=== PATIENT | female | born 1990 | race Caucasian/White ===

== ENCOUNTER 2017-10-20 04:38 | Emergency (ER) | payer BC ==
[~2017-10-20] VITALS: Ht 167.6 cm; Wt 80.2 kg
[2017-10-20 04:40] VITALS: BP 138/79; PULSE 83; RESP 16; TEMP 97.7; O2SAT 100
[2017-10-20] MEDS ORDERED: AMOXICILLIN/CLAVULANATE K 875 MG TAB PO ONE (05:00)
[2017-10-20] MEDS ORDERED: CHLO.12%30 SWISH-SPIT (05:09)
[2017-10-20] MEDS ORDERED: AUGM875T3 PO (05:09)
[2017-10-20] MEDS ORDERED: IBUP1TAB7 PO (05:09)
--- NOTE | 2017-10-20 05:10 | PD ---
HPI Chief Complaint: Skin Problem Time Seen by Provider: 04:52 Travel History International Travel<30 days: No Contact w/Intl Traveler<30days: No Traveled to known affect area: No History of Present Illness HPI Patient is a 27-year-old female presenting to the emergency department for evaluation of left upper lip swelling. Patient states it started last night, when she woke up this morning and gotten worse. Patient has a piercing in her left upper lip since she was 14, she has never removed the piercing. She is unable to get the piercing out at this time. She denies any fever, chills, nausea, vomiting, headache. She reports her pain is a 3 out of 10 and states it sore. Symptom onset was gradual, symptoms are moderate in severity. PFSH Past Medical History Medical History: Denies Significant Hx Diminished Hearing: No ?: Not : 1 Para: 1 Past Surgical History Surgical History: No Previous Surgery Social History Alcohol Use: No Tobacco Use: No Substance Use: No Allergies-Medications (Allergen,Severity, Reaction): Coded Allergies: No Known Allergies (Unverified , 10/20/17) Reported Meds & Prescriptions Reported Meds & Active Scripts Active Chlorhexidine Gluconate (Mouth) Liq (Chlorhexidine Gluconate) 0.12% Soln 15 Ml SWISH-SPIT BID 10 Days Ibuprofen 800 Mg Tab 800 Mg PO Q6HR PRN Augmentin (Amoxicillin-Clavulanate) 875-125 Mg Tab 1 Tab PO BID Review of Systems Except as stated in HPI: all other systems reviewed are Neg Musculoskeletal: Positive: Edema Physical Exam Narrative GENERAL: Well-developed, well-nourished, alert female. Presenting in no acute distress. SKIN: Warm and dry. Left upper lip from the midline to the left lateral aspect is edematous, no erythema noted. Piercing in place. Edema is limited to the left upper lip HEAD: Normocephalic. EYES: No scleral icterus. No injection or drainage. NECK: Supple, trachea midline. No JVD or lymphadenopathy. CARDIOVASCULAR: Regular rate and rhythm without murmurs, gallops, or rubs. RESPIRATORY: Breath sounds equal bilaterally. No accessory muscle use. GASTROINTESTINAL: Abdomen soft, non-tender, nondistended. MUSCULOSKELETAL: No cyanosis, or edema. BACK: Nontender without obvious deformity. No CVA tenderness. Data Data Last Documented VS Vital Signs Date Time Temp Pulse Resp B/P (MAP) Pulse Ox O2 Delivery O2 Flow Rate FiO2 10/20/17 04:40 97.7 83 16 138/79 (98) 100 Orders Orders Amoxicil-Clavulanate (Augmentin) (10/20/17 05:00) Ed Discharge Order (10/20/17 04:52) MDM Medical Decision Making Medical Screen Exam Complete: Yes Emergency Medical Condition: Yes Interpretation(s) Vital Signs Date Time Temp Pulse Resp B/P (MAP) Pulse Ox O2 Delivery O2 Flow Rate FiO2 10/20/17 04:40 97.7 83 16 138/79 (98) 100 Differential Diagnosis Cellulitis versus abscess versus retained foreign body versus other Narrative Course Patient is a 27-year-old female that presented to emergency room for evaluation of edema to her left upper lip. Area appears edematous however there is no erythema. Patient's vital signs are stable. Piercing was removed. Patient was given a dose of Augmentin in the emergency department. She is encouraged to complete full course of antibiotics, use chlorhexidine mouthwash twice daily. She is encouraged to return to emergency department immediately for any new or worsening symptoms. Patient was advised to leave the piercing out until area is well-healed. She verbalized understanding of instructions. Patient stable for discharge. Diagnosis Primary Impression: Cellulitis Qualified Codes: L03.211 - Cellulitis of face Referrals: Primary Care Physician Patient Instructions: Cellulitis (ED), General Instructions Additional Instructions: Complete full course of antibiotics as prescribed Follow-up with your primary doctor Return to emergency department for new worsening symptoms Use chlorhexidine mouthwash as directed twice daily, do not swallow it. Med/Other Pt SpecificInfo: Prescription(s) given Scripts Chlorhexidine Gluconate (Mouth) Liq (Chlorhexidine Gluconate (Mouth) Liq) 0.12% Soln 15 ML SWISH-SPIT BID for 10 Days, ML 0 Refills Prov: Stefanie Han 10/20/17 Ibuprofen (Ibuprofen) 800 Mg Tab 800 MG PO Q6HR Y for PAIN, #40 TAB 0 Refills Prov: Stefanie Han 10/20/17 Amoxicillin-Clavulanate (Augmentin) 875-125 Mg Tab 1 TAB PO BID for Infection, #20 TAB 0 Refills Prov: Stefanie Han 10/20/17 Disposition: 01 DISCHARGE HOME Condition: Stable Stefanie Han Oct 20, 2017 05:10
== END 2017-10-20 05:19 | disposition home or self-care (01) ==
LOC: NEPD 04:38
DX: L03.211 Cellulitis of face (principal)
CPT/HCPCS: 99283